=== PATIENT | female | born 1955 | race African-American/Black ===

== ENCOUNTER → 2016-04-20 | Outpatient (CLI) | payer OTHER ==
[2016-02-29 06:10] VITALS: BP 161/70
[~2016-04-20] MED LIST: AMOX500C PO; ATOR10TA PO; BUDE10.2 IH; CEPH-264 PO; CHOL400C2 PO; DOCU-27 PO; FURO-69 PO; GLIM2TAB PO; IBUP-1060 PO; MELO-156 PO; METF10002 PO; METO25TA9 PO; OMEP20CA5 PO; OXYC-323 PO; PIOG30TA20 PO; POTA20TA12 PO; PROAIR HFA8.5 GM INH; TEMA30CA6 PO; VALS80TA3 PO; ZAFI20TA11 PO
[2016-04-20 12:09] LABS: FREE T4 1.25 ng/dL (0.76-1.46)
== END | disposition home or self-care (01) ==
LOC: LAB 11:02
PROVIDERS: ATTEND Obstetrics & Gynecology
DX: Z01.419 Encounter for gynecological examination (general) (routine) without abnormal findings (principal)
CPT/HCPCS: 36415; 84439; 84443

== ENCOUNTER → 2016-12-01 | Day surgery (SDC) | payer OTHER ==
[~2016-12-01] MED LIST changes: +DOCU-109 PO; -DOCU-27 PO; +GABA-586 PO; +IV RINGERS,LACTATED 1000ML 1,000 ML IV SCH; +LIDOCAINE 1% PF 2 ML VIAL. ID PRN; -MELO-156 PO; +MELO7.5T29 PO; +METF-620 PO; -METF10002 PO; +METO-239 PO; -METO25TA9 PO; +ONDANSETRON PF 4 MG/2 ML VIAL. IV PRN; -PIOG30TA20 PO; +PIOG30TA41 PO; +PROCHLORPERAZINE 10 MG/2 ML VIAL. IV PRN; +PROPOFOL 60 ML IV ONE; +fentaNYL PF VIAL 100 MCG/2 ML VIAL IV PRN
[2016-12-01 09:44] VITALS: BP 141/79
== END | disposition home or self-care (01) ==
LOC: ENDOS 07:32
PROVIDERS: ATTEND Internal Medicine Gastroenterology
DX: D50.0 Iron deficiency anemia secondary to blood loss (chronic) (principal); K64.0 First degree hemorrhoids; K57.30 Diverticulosis of large intestine without perforation or abscess without bleeding; K29.50 Unspecified chronic gastritis without bleeding; E78.00 Pure hypercholesterolemia, unspecified; E11.9 Type 2 diabetes mellitus without complications; I10 Essential (primary) hypertension; K21.9 Gastro-esophageal reflux disease without esophagitis; Z91.011 Allergy to milk products; Z88.6 Allergy status to analgesic agent; Z87.39 Personal history of other diseases of the musculoskeletal system and connective tissue; Z86.69 Personal history of other diseases of the nervous system and sense organs; Z86.39 Personal history of other endocrine, nutritional and metabolic disease
CPT/HCPCS: 43235; 45378; J2405; J2704

== ENCOUNTER → 2017-07-19 | Outpatient (CLI) | payer OTHER | END | disposition home or self-care (01) | LOC: RAD 19:01 | DX: Z20.1 Contact with and (suspected) exposure to tuberculosis (principal) | CPT/HCPCS: 71046 ==

== ENCOUNTER → 2017-11-15 | Outpatient (CLI) | payer OTHER ==
[2016-12-01 09:44] VITALS: BP 141/79
[~2017-11-15] MED LIST changes: -IV RINGERS,LACTATED 1000ML 1,000 ML IV SCH; -LIDOCAINE 1% PF 2 ML VIAL. ID PRN; -METF-620 PO; +METF10007 PO; -ONDANSETRON PF 4 MG/2 ML VIAL. IV PRN; -PROCHLORPERAZINE 10 MG/2 ML VIAL. IV PRN; -PROPOFOL 60 ML IV ONE; -fentaNYL PF VIAL 100 MCG/2 ML VIAL IV PRN
[2017-11-15 10:52] LABS: BASO % 1 % (0-3); EOS # 0.1 x10^3/uL (0.0-0.7); EOS % 2 % (0-3); HEMATOCRIT 29.8 % (36.0-47.0); HEMOGLOBIN 9.6 g/dL (12.0-15.5); LYMPH % 20 % (24-48); MEAN CORPUSCULAR HEMOGLOBIN 27 pg (25-35); MEAN CORPUSCULAR HGB CONC 32 g/dL (31-37); MEAN CORPUSCULAR VOLUME 83 fL (79-100); MONO # 0.3 x10^3/uL (0.0-1.1); MONO % 6 % (0-9); NEUT # 3.6 x10^3uL (1.8-7.7); NEUT % 72 % (31-73); PLATELET COUNT 279 x10^3/uL (140-400); RED CELL DISTRIBUTION WIDTH 17.1 % (11.5-14.5)
[2017-11-15 15:20] LABS: ALBUMIN 3.5 g/dL (3.4-5.0); ALBUMIN/GLOBULIN RATIO 0.9 (1.0-1.7); CALCIUM 8.9 mg/dL (8.5-10.1); CREATININE 1.5 mg/dL (0.6-1.0); GFR 42.4; POTASSIUM 4.9 mmol/L (3.5-5.1); TOTAL BILIRUBIN 0.3 mg/dL (0.2-1.0); TOTAL PROTEIN 7.4 g/dL (6.4-8.2)
[2017-11-15 15:21] LABS: CHOLESTEROL/HDL RATIO 2.6
== END | disposition home or self-care (01) ==
LOC: RAD 10:30
PROVIDERS: ATTEND Internal Medicine
DX: E11.8 Type 2 diabetes mellitus with unspecified complications (principal); D64.9 Anemia, unspecified; K21.9 Gastro-esophageal reflux disease without esophagitis; E78.00 Pure hypercholesterolemia, unspecified; E78.5 Hyperlipidemia, unspecified; Z86.73 Personal history of transient ischemic attack (TIA), and cerebral infarction without residual deficits; Z86.39 Personal history of other endocrine, nutritional and metabolic disease; Z86.69 Personal history of other diseases of the nervous system and sense organs; Z91.011 Allergy to milk products; Z88.5 Allergy status to narcotic agent; Z88.6 Allergy status to analgesic agent
CPT/HCPCS: 36415; 80053; 80061; 82728; 83036; 85025

== ENCOUNTER → 2018-05-29 | Outpatient (CLI) | payer OTHER ==
[2017-12-12 12:07] VITALS: BP 176/73
[~2018-05-29] MED LIST changes: +ALBU2.5V8 INH; -GABA-586 PO; +GABA300C18 PO; +MONT10TA9 PO; -OXYC-323 PO; +OXYC1TAB15 PO; -PROAIR HFA8.5 GM INH; +TELM80TA PO
--- NOTE | 2018-05-29 14:12 | KCIC ---
MR of the left shoulder HISTORY: Left arm and shoulder weakness. Decreased range of motion. Symptoms for about 6 months. No known injury. TECHNIQUE: Routine multiplanar sequences are obtained. FINDINGS: The acromial clavicular joint is mildly degenerative, with small undersurface osteophytes. There is rotator cuff tendinosis. Partial-thickness undersurface tear of the anterior supraspinatus tendon measures about 1 cm AP diameter and up to 80% deep. No complete full-thickness rupture or retraction. No significant subscapularis tendon tear. No significant subdeltoid bursal effusion. Moderate fatty infiltration of the teres minor muscle, but no evidence of space-occupying lesion along the course of axillary nerve. No significant joint effusion. No acute articular cartilage defect. Biceps tendon is intact. No evidence of labral tear. No aggressive bone destruction. No acute fracture. IMPRESSION: Partial thickness rotator cuff tear involving the undersurface of the supraspinatus tendon. No full-thickness rupture or retraction. Electronically signed by: Nito Bagley MD (05/29/2018 2:09 PM) [id number]
== END | disposition home or self-care (01) ==
LOC: KCIC MRI 11:26
PROVIDERS: ATTEND Internal Medicine
DX: M75.102 Unspecified rotator cuff tear or rupture of left shoulder, not specified as traumatic (principal); M25.712 Osteophyte, left shoulder
CPT/HCPCS: 73221

== ENCOUNTER → 2018-11-15 | Outpatient (CLI) | payer OTHER ==
[2017-12-12 12:07] VITALS: BP 176/73
[~2018-11-15] MED LIST changes: +MONT10TA49 PO; -MONT10TA9 PO
[2018-11-15 10:59] LABS: BASO % 1 % (0-3); EOS # 0.1 x10^3/uL (0.0-0.7); EOS % 2 % (0-3); HEMATOCRIT 36.4 % (36.0-47.0); HEMOGLOBIN 12.1 g/dL (12.0-15.5); LYMPH % 20 % (24-48); MEAN CORPUSCULAR HEMOGLOBIN 32 pg (25-35); MEAN CORPUSCULAR HGB CONC 33 g/dL (31-37); MEAN CORPUSCULAR VOLUME 95 fL (79-100); MONO # 0.3 x10^3/uL (0.0-1.1); MONO % 7 % (0-9); NEUT # 3.6 x10^3/uL (1.8-7.7); NEUT % 71 % (31-73); PLATELET COUNT 249 x10^3/uL (140-400); RED BLOOD COUNT 3.82 x10^6/uL (3.50-5.40); RED CELL DISTRIBUTION WIDTH 13.5 % (11.5-14.5)
[2018-11-15 11:26] LABS: ALBUMIN 3.8 g/dL (3.4-5.0); ALBUMIN/GLOBULIN RATIO 1.1 (1.0-1.7); CALCIUM 9.5 mg/dL (8.5-10.1); CREATININE 1.5 mg/dL (0.6-1.0); GFR 42.3; MAGNESIUM 1.9 mg/dL (1.8-2.4); PHOSPHORUS 3.2 mg/dL (2.6-4.7); TOTAL BILIRUBIN 0.4 mg/dL (0.2-1.0); TOTAL PROTEIN 7.4 g/dL (6.4-8.2)
== END | disposition home or self-care (01) ==
LOC: LAB 10:24
PROVIDERS: ATTEND Internal Medicine
DX: D50.9 Iron deficiency anemia, unspecified (principal); E11.9 Type 2 diabetes mellitus without complications; G47.62 Sleep related leg cramps
CPT/HCPCS: 36415; 80053; 82043; 82728; 83036; 83735; 84100; 85025